=== PATIENT | male | born 1985 | race Caucasian/White ===

== ENCOUNTER 2016-08-19 19:00 | Emergency (ER) | payer SELFPAY ==
[~2016-08-19] VITALS: Ht 167.6 cm; Wt 91.0 kg
[~2016-08-19 19:00] MED LIST: IBUP800T23 PO; MMW SSP; PENI500T PO
[2016-08-19 19:01] VITALS: BP 134/79; PULSE 80; RESP 16; TEMP 98.6; O2SAT 100
[2016-08-19 20:50] VITALS: BP 118/71; PULSE 72; RESP 18; TEMP 98.6; O2SAT 99
[2016-08-19] MEDS ORDERED: SODIUM CHLOR 0.9% 1000 ML INJ 1,000 ML IV SCH (20:56)
[2016-08-19] MEDS ORDERED: KETOROLAC TROMETHAMINE 30 MG/ML (IVP) VIAL IV PUSH ONE (21:00)
--- NOTE | 2016-08-19 21:02 | PD ---
HPI Chief Complaint: Skin Problem Time Seen by Provider: 20:50 Travel History International Travel<30 days: No Contact w/Intl Traveler<30days: No Traveled to known affect area: No History of Present Illness HPI 31-year-old male with no significant past medical history presents for evaluation of right lower extremity soft tissue swelling and redness and pain. Symptoms started spontaneously 3 days ago. He describes it as a throbbing pain which is constant, worse when walking. He denies any leg trauma. Denies any history of DVT or PE. No fevers or chills. No recent travel, recent surgery. He has no other complaints at this time. [facility] Past Medical History Medical History: Denies Significant Hx Diminished Hearing: No Tetanus Vaccination: < 5 Years Past Surgical History Surgical History: No Previous Surgery Social History Alcohol Use: Yes (occasionally) Tobacco Use: Yes (1/2 ppd) Substance Use: No Allergies-Medications (Allergen,Severity, Reaction): Coded Allergies: No Known Allergies (Verified , 08/19/16) Reported Meds & Prescriptions Reported Meds & Active Scripts Active Keflex (Cephalexin) 500 Mg Cap 500 Mg PO Q8HR Bactrim DS (Sulfamethoxazole-Trimethoprim) 800-160 Mg Tab 1 Tab PO BID Review of Systems Except as stated in HPI: all other systems reviewed are Neg Physical Exam Narrative GENERAL: Well-developed well-nourished male in no acute distress SKIN: Warm and dry. Examination of the right lower extremity reveals some erythematous changes to the tibial region with 1+ pitting edema. There is a small abrasion to the anterior right corrigan as well. HEAD: Atraumatic. Normocephalic. EYES: Pupils equal and round. No scleral icterus. No injection or drainage. ENT: No nasal bleeding or discharge. Mucous membranes pink and moist. NECK: Trachea midline. No JVD. CARDIOVASCULAR: Regular rate and rhythm. No murmur appreciated. RESPIRATORY: No accessory muscle use. Clear to auscultation. Breath sounds equal bilaterally. GASTROINTESTINAL: Abdomen soft, non-tender, nondistended. Hepatic and splenic margins not palpable. MUSCULOSKELETAL: No obvious deformities. Skin as noted above with 1+ right lower extremity edema. Negative Homans. Generalized tenderness to palpation to the anterior right corrigan. Distal pulses intact. No inguinal lymphadenopathy. NEUROLOGICAL: Awake and alert. No obvious cranial nerve deficits. Motor grossly within normal limits. Normal speech. Data Data Last Documented VS Vital Signs Date Time Temp Pulse Resp B/P Pulse Ox O2 Delivery O2 Flow Rate FiO2 08/19/16 20:50 98.6 72 18 118/71 99 Nasal Cannula Orders Us Leg Venous Doppler (08/19/16 20:56) Complete Blood Count With Diff (08/19/16 20:56) Comprehensive Metabolic Panel (08/19/16 20:56) Prothrombin Time / Inr (Pt) (08/19/16 20:56) Act Partial Throm Time (Ptt) (08/19/16 20:56) Lactic Acid Sepsis Protocol (08/19/16 20:56) Sodium Chlor 0.9% 1000 Ml Inj (Ns 1000 M (08/19/16 20:56) Ketorolac Inj (Toradol Inj) (08/19/16 21:00) Clindamycin Inj (Cleocin Inj) (08/19/16 22:15) Labs Laboratory Tests Test 08/19/16 21:08 White Blood Count 12.2 TH/MM3 Red Blood Count 4.67 MIL/MM3 Hemoglobin 13.9 GM/DL Hematocrit 40.2 % Mean Corpuscular Volume 86.1 FL Mean Corpuscular Hemoglobin 29.8 PG Mean Corpuscular Hemoglobin 34.6 % Concent Red Cell Distribution Width 13.4 % Platelet Count 202 TH/MM3 Mean Platelet Volume 8.6 FL Neutrophils (%) (Auto) 79.8 % Lymphocytes (%) (Auto) 10.6 % Monocytes (%) (Auto) 6.3 % Eosinophils (%) (Auto) 2.6 % Basophils (%) (Auto) 0.7 % Neutrophils # (Auto) 9.7 TH/MM3 Lymphocytes # (Auto) 1.3 TH/MM3 Monocytes # (Auto) 0.8 TH/MM3 Eosinophils # (Auto) 0.3 TH/MM3 Basophils # (Auto) 0.1 TH/MM3 CBC Comment DIFF FINAL Differential Comment Prothrombin Time 10.5 SEC Prothromb Time International 1.0 RATIO Ratio Activated Partial 28.7 SEC Thromboplast Time Sodium Level 140 MEQ/L Potassium Level 3.8 MEQ/L Chloride Level 105 MEQ/L Carbon Dioxide Level 26.0 MEQ/L Anion Gap 9 MEQ/L Blood Urea Nitrogen 8 MG/DL Creatinine 0.70 MG/DL Estimat Glomerular Filtration 130 ML/MIN Rate Random Glucose 86 MG/DL Lactic Acid Level 0.9 mmol/L Calcium Level 9.0 MG/DL Total Bilirubin 0.6 MG/DL Aspartate Amino Transf 24 U/L (AST/SGOT) Alanine Aminotransferase 24 U/L (ALT/SGPT) Alkaline Phosphatase 89 U/L Total Protein 7.0 GM/DL Albumin 3.4 GM/DL [facility] Medical Decision Making Medical Screen Exam Complete: Yes Emergency Medical Condition: Yes Medical Record Reviewed: Yes Differential Diagnosis Cellulitis, DVT, erysipelas, osteomyelitis Narrative Course 31-year-old male with no significant past medical history presents with 3 days of right lower extremity pain, redness, swelling. Examination reveals what are likely cellulitic changes to the anterior right corrigan. There is some associated edema. Plan is for basic lab work, ultrasound of the right lower extremity, IV fluids. The patient's lab work is reassuring. He has slightly elevated white blood cell count. Otherwise his laboratory unremarkable. Plan is to give him an IV dose of clindamycin and discharged with oral Bactrim and Keflex. Discussed signs and symptoms that would warrant returning to the emergency room. He is stable for discharge. Diagnosis Primary Impression: Cellulitis of right leg Departure Forms: Tests/Procedures, Work Release Enter return to work date: August 23, 2016 Additional Instructions: Take antibiotics as prescribed. Warm compresses to the affected area several times a day 10-15 minutes at a time. Follow-up closely with primary care physician. Return for evidence of worsening infection such as increasing redness, red streaks up the leg, fevers. Med/Other Pt SpecificInfo: Prescription(s) given Scripts Cephalexin (Keflex)500 Mg Ali889 Mg PO Q8HR #30 CAP Ref 0 Prov:Bulmaro Sanabria MD 08/19/16 Sulfamethoxazole-Trimethoprim (Bactrim DS)800-160 Mg Tab1 Tab PO BID #20 TAB Ref 0 Prov:Bulmaro Sanabria MD 08/19/16 Disposition: 01 DISCHARGE HOME Condition: Stable Jacky Hidalgo August 19, 2016 21:02
[2016-08-19 21:19] LABS: AUTOMATED NEUTROPHIL # 9.7 TH/MM3 (1.8-7.7); BASOPHIL # 0.1 TH/MM3 (0-0.2); BASOPHIL % 0.7 % (0.0-2.0); EOSINOPHIL # 0.3 TH/MM3 (0-0.4); EOSINOPHIL % 2.6 % (0.0-4.0); HEMATOCRIT 40.2 % (39.0-51.0); HEMO FLAGS DIFF FINAL; LYMPH % 10.6 % (9.0-44.0); LYMPHOCYTE # 1.3 TH/MM3 (1.0-4.8); MEAN CELL VOLUME 86.1 FL (80.0-100.0); MEAN CORPUSCULAR HEMOGLOBIN 29.8 PG (27.0-34.0); MEAN CORPUSCULAR HGB CONC 34.6 % (32.0-36.0); MONO % 6.3 % (0.0-8.0); NEUT % 79.8 % (16.0-70.0); PLATELET COUNT 202 TH/MM3 (150-450); RED BLOOD COUNT 4.67 MIL/MM3 (4.50-5.90); RED CELL DISTRIBUTION WIDTH 13.4 % (11.6-17.2); WHITE BLOOD COUNT 12.2 TH/MM3 (4.0-11.0)
[2016-08-19 21:37] LABS: APTT (PATIENT) 28.7 SEC (24.3-30.1); PROTHROMBIN TIME - PATIENT 10.5 SEC (9.8-11.6)
[2016-08-19 21:44] LABS: ANION GAP 9 MEQ/L (5-15); AST (GOT) 24 U/L (15-37); BLOOD UREA NITROGEN 8 MG/DL (7-18); CHLORIDE 105 MEQ/L (98-107); GLOMERULAR FILTRATION RATE 130 ML/MIN (>89); POTASSIUM 3.8 MEQ/L (3.5-5.1); SODIUM (NA) 140 MEQ/L (136-145)
[2016-08-19 21:47] LABS: ALKALINE PHOSPHATASE 89 U/L (45-117); ALT (GPT) 24 U/L (12-78); TOTAL BILIRUBIN ADULT 0.6 MG/DL (0.2-1.0)
[2016-08-19] MEDS ORDERED: CLINDAMYCIN INJ 600 MG in SODIUM CHLORIDE 0.9% INJ 100 ML IV ONE (22:15)
[2016-08-19] MEDS ORDERED: BACT800T5 PO (22:47)
[2016-08-19] MEDS ORDERED: CEPH-460 PO (22:47)
--- NOTE | 2016-08-19 22:55 | RADRPT ---
EXAM DATE/TIME: 08/19/2016 21:43 [place] COMPARISON: No previous studies available for comparison. INDICATIONS : Right leg pain and swelling. MEDICAL HISTORY : Right lower leg pain, swelling, and redness. SURGICAL HISTORY : None. ENCOUNTER: Initial ACUITY: 3 days PAIN SCORE: 7/10 LOCATION: Right upper quadrant TECHNIQUE: Venous ultrasound of the leg was performed from the inguinal ligament to the proximal calf. Real-diamond e, color Doppler and spectral tracing, compression and augmentation techniques were used. FINDINGS: There is normal compressibility of the deep venous system from the inguinal region to the proximal ca lf. No echogenic clot is seen in the lumen of the common femoral, femoral, popliteal, and posterior tibial veins. There is a normal response of the venous system to proximal and distal augmentation an d respiration. CONCLUSION: Normal examination. Manuel Carnes MD on August 19, 2016 at 22:52 Board Certified Radiologist. This report was verified electronically.
[2016-08-19 23:31] VITALS: BP 118/73; PULSE 79; RESP 18; O2SAT 100
== END 2016-08-19 23:49 | disposition home or self-care (01) ==
LOC: NEPC 19:00
DX: L03.115 Cellulitis of right lower limb (principal)
CPT/HCPCS: 80053; 83605; 85025; 85610; 85730; 93971; 96374; 96375; 99284; J1885; J7030